=== PATIENT | male | born 1945 | race Caucasian/White ===

== ENCOUNTER 2019-12-28 18:59 | Inpatient (IN) | payer OTHER, MEDICARE ==
[~2019-12-28] VITALS: Ht 177.8 cm; Wt 59.1 kg
[2019-12-28 19:55] LABS: Hematocrit 47.6 % (37.0-53.0); Hemoglobin 16.1 g/dL (13.5-17.5); Mean Corpuscular HGB 33.2 pg (26.0-34.0); Mean Corpuscular HGB Conc 33.8 g/dL (31.5-36.5); Mean Corpuscular Volume 98 fL (80-100); Mean Platelet Volume 10.2 fL (9.1-12.4); Platelet Count 671 K/mm3 (150-400); RDW Coefficient Variation 13.7 % (11.7-14.2); RDW Standard Deviation 50.1 fL (35.1-46.3); Red Blood Cell Count 4.85 M/mm3 (4.30-5.90); White Blood Cell Count 22.61 K/mm3 (4.00-11.30)
[2019-12-28 20:10] LABS: International Normalized Ratio 1.07; Prothrombin Time Results 11.4 Sec (9.7-11.5)
[2019-12-28 20:11] LABS: Alanine Aminotransfer (ALT/SGP 28 U/L (12-78); Albumin, Blood 2.7 g/dL (3.4-5.0); Albumin/Globulin Ratio 0.5 (0.8-1.8); Alk Phos 109 U/L (50-136); Anion Gap 7 mmol/L (6-16); Aspartate Aminotrans (AST/SGOT 28 U/L (12-37); Bilirubin, Total 0.6 mg/dL (0.1-1.0); Blood Urea Nitrogen 15 mg/dL (8-24); Bun/Creatinine Ratio 19.7 (12.0-20.0); CO2, Blood 27 mmol/L (21-32); Calcium, Blood 9.6 mg/dL (8.5-10.1); Chloride, Blood 108 mmol/L (98-108); Creatinine, Blood 0.76 mg/dL (0.60-1.20); Globulin, Blood 5.2 g/dL (2.2-4.0); Glomerular Filtration Rate >60 (60-); Glucose, Blood 158 mg/dL (70-99); Potassium, Blood 3.8 mmol/L (3.5-5.5); Sodium, Blood 142 mmol/L (136-145); Total Protein, Blood 7.9 g/dL (6.4-8.2)
[2019-12-28 20:16] LABS: BAND PERCENT MAN 1 % (0-8); BASOPHILS PERCENT MAN 0 % (0-2); EOSINOPHILS PERCENT MAN 0 % (0-6); LYMPHOCYTES % ATYPICAL MANUAL 1 % (0-0); LYMPHOCYTES ABSOLUTE MAN 1.35 K/mm3 (0.84-5.20); LYMPHOCYTES PERCENT MAN 5 % (21-46); MONOCYTES ABSOLUTE MAN 0.67 K/mm3 (0.16-1.47); MONOCYTES PERCENT MAN 3 % (4-13); NEUTROPHILS ABSOLUTE MAN 20.57 K/mm3 (1.96-9.15); SEG NEUTROPHILS PERCENT MAN 90 % (41-73); TOTAL CELLS COUNTED 100
[2019-12-29 06:19] LABS: Hematocrit 46.9 % (37.0-53.0); Hemoglobin 15.8 g/dL (13.5-17.5); Mean Corpuscular HGB 33.5 pg (26.0-34.0); Mean Corpuscular HGB Conc 33.7 g/dL (31.5-36.5); Mean Corpuscular Volume 99 fL (80-100); Mean Platelet Volume 10.4 fL (9.1-12.4); Platelet Count 624 K/mm3 (150-400); RDW Coefficient Variation 13.7 % (11.7-14.2); RDW Standard Deviation 50.4 fL (35.1-46.3); Red Blood Cell Count 4.72 M/mm3 (4.30-5.90); White Blood Cell Count 22.25 K/mm3 (4.00-11.30)
[2019-12-29 15:18] LABS: Source, Urine Clean Catch
[2019-12-29 15:34] LABS: Blood, Urine 3+ (Neg); Glucose Qualitative, Urine Neg (Neg); Ketones, Urine 1+ (Neg); Leukocyte Esterase, Urine 1+ (Neg); Nitrite, Urine Neg (Neg); Protein, Urine 2+ (Neg); Specific Gravity, Urine 1.015 (1.003-1.022); Urobilinogen, Urine 4+ (Normal)
[2019-12-29 16:00] LABS: Bilirubin, Urine 1+ (Neg)
[2019-12-29 16:01] LABS: Appearance, Urine Clear (Clear); Color, Urine Yellow (P-Yellow)
[2019-12-29 16:02] LABS: Bacteria Few /hpf; Mucus Light (0-Heavy); Squamous Epithelial Cells Not Seen /hpf (Few); White Blood Cells, Urine 0-2 /hpf (0-5)
--- NOTE | 2019-12-29 17:53 | NUR ---
ADMIT NOTE RECEIVED TELEPHONE REPORT FROM MARCELA HERRERA IN ED. PT TO ROOM VIA GURNEY AT 1447; PT TRANSFERED TO BE SBA. PT AND SON ORIENTED TO ROOM AND CALL LIGHT; EDUCATED ON FALL RISK AND CALLING BEFORE GETTING UP. PT A&Ox3; CALM AND COOPERATIVE WITH CARE. PT DENIES PAIN, CHEST PAIN, NAUSEA, SOB, AND DIZZINESS. PT UNSTEADY GAIT; EDUCATED ON BED ALARM. COEUR D'ALENE. VSS. PT STATES HE DRINKS 4-8 OZ SCOTCH DAILY; LAST DRINK 12/27/19 EVENING. NO OTHER ACUTE CHANGES NOTED DURING SHIFT. WILL CONTINUE TO MONITOR UNTIL REPORT GIVEN TO ONCOMING RN.
[2019-12-30 04:01] LABS: BASOPHILS ABSOLUTE AUTO 0.09 K/mm3 (0.00-0.23); BASOPHILS PERCENT AUTO 0 % (0-2); EOSINOPHILS ABSOLUTE AUTO 0.08 K/mm3 (0.00-0.68); EOSINOPHILS PERCENT AUTO 0 % (0-6); Hematocrit 45.1 % (37.0-53.0); Hemoglobin 15.3 g/dL (13.5-17.5); IMMATURE GRAN ABSOLUTE AUTO 0.18 K/mm3 (0.00-0.10); IMMATURE GRAN PERCENT AUTO 1 % (0-1); LYMPHOCYTES ABSOLUTE AUTO 1.51 K/mm3 (0.84-5.20); LYMPHOCYTES PERCENT AUTO 7 % (21-46); MONOCYTES ABSOLUTE AUTO 1.69 K/mm3 (0.16-1.47); MONOCYTES PERCENT AUTO 8 % (4-13); Mean Corpuscular HGB 33.2 pg (26.0-34.0); Mean Corpuscular HGB Conc 33.9 g/dL (31.5-36.5); Mean Corpuscular Volume 98 fL (80-100); Mean Platelet Volume 10.5 fL (9.1-12.4); NEUTROPHILS ABSOLUTE AUTO 18.54 K/mm3 (1.96-9.15); NEUTROPHILS PERCENT AUTO 84 % (41-73); Platelet Count 518 K/mm3 (150-400); RDW Coefficient Variation 13.6 % (11.7-14.2); RDW Standard Deviation 49.3 fL (35.1-46.3); Red Blood Cell Count 4.61 M/mm3 (4.30-5.90); White Blood Cell Count 22.09 K/mm3 (4.00-11.30)
--- NOTE | 2019-12-30 04:09 | NUR ---
SHIFT SUMMARY PT HAS BEEN ASLEEP MOST OF THE SHIFT WITH NO COMPLAINTS OF PAIN OR DISCOMFORT. PT HAS BEEN STABLE WITH VITALS OF BP 130-119 SYSTOLIC, HR 80'S, AND 02 SATS IN THE 90'S ON ROOM AIR. NO SYMPTOMS OF WITHDRAW, PT DENIED ANY HEADACHE, TREMORS, OR HALLUCINATIONS. NO CIWA'S WERE SCORED PT WAS ASLEEP AND ASYMPTOMATIC. PT WAS UNHAPPY BUT COOPERATIVE WITH CARE. PT HAS BEEN NPO SINCE MIDNIGHT AND IS ASLEEP. WILL CONTINUE TO MONITOR UNTIL SHIFT CHANGE.
[2019-12-30 04:15] LABS: Anion Gap 6 mmol/L (6-16); Blood Urea Nitrogen 11 mg/dL (8-24); Bun/Creatinine Ratio 17.1 (12.0-20.0); CO2, Blood 25 mmol/L (21-32); Calcium, Blood 8.5 mg/dL (8.5-10.1); Chloride, Blood 105 mmol/L (98-108); Creatinine, Blood 0.65 mg/dL (0.60-1.20); Glomerular Filtration Rate >60 (60-); Glucose, Blood 195 mg/dL (70-99); Potassium, Blood 3.4 mmol/L (3.5-5.5); Sodium, Blood 136 mmol/L (136-145)
--- NOTE | 2019-12-30 10:38 | NUR ---
12/30/19 Danya Catherine MAC CASE WITH DR. HOLLEY IN ENDO 2. SEE ANETHESIA RECORD FOR CARE
--- NOTE | 2019-12-30 18:53 | NUR ---
TRANSFER TO ROOM 330 PT A&Ox4; CALM AND COOPERATIVE WITH CARE. PT RESTING IN BED; APPEARS TO BE SLEEPING DURING SHIFT. UP WITH SBA IN ROOM. PT DENIES PAIN, CHEST PAIN, SOB, NAUSEA AND DIZZINESS T/O SHIFT. WENT TO PROCEDUER THIS AM; PLANS TO GO FOR COLONOSCOPY TOMORROW; NPO AFTER LUNCH TOMORROW PER ORDERS. VSS. NO OTHER ACUTE CHANGES NOTED. REPORT GIVEN TO MARCELA BOOGIE ASSUMING CARE OF PT; PT TRANSFERED TO ROOM 330 WHEELCHAIR AT 1700.
--- NOTE | 2019-12-30 19:37 | NUR ---
1700 ASSUMED CARE OF PT; TX FROM PCU 1 TO RM 330. RECEIVED REPORT FROM KAREEM MEDRANO. PT ADMITTED FOR GIB, SENT FROM [facility]. PT HAD UPPER ENDO TODAY AND FLEX FINDING SIGMOID POLYP. PT TO HAVE FULL SCOPE TOMORROW TO LOOK FOR MORE POLYPS, PER KAREEM MEDRANO. PT ON CL DIET AT THIS TIME, WITH NO REDS. PT TO BE NPO AFTER LUNCH TOMORROW. SR ON TELE, PER REPORT. PT HEAVY DRINKER, PER REPORT AND PT. MARCELO'S WNL'S AT THIS TIME. PT'S SON TO WITH PT, TO RETURN TOMORROW. PT'S SON REPORTED THAT PT HAD DROVE HIMSELF TO HOSPITAL, BUT SON DOES NOT WANT PT TO DRIVE HIMSELF HOME. SON TO BE NOTIFIED PRIOR TO PT D/C. SON'S NUMBER ON BOARD. PT RESTING QUIETLY AT THIS TIME. 1P SBA TO BTHRM. BSC TO BE OBTAINED WHEN STARTING GOLYTELY. REPORT GIVEN TO ONCOMING RN. CALL LT IN REACH.
--- NOTE | 2019-12-30 20:11 | NUR ---
PHYSICIAN COMMUNICATION CONTACTED SAT INSTRUCTOR PHYSICIAN, DR CAMERON, TO NOTIFY HIM THAT THE PATIENT HAD A TEMPERATURE OF 100.5 BUT DID NOT HAVE AN ORDER FOR TYLENOL. DR CAMERON ORDERED 650 MG OF TYLENOL PO EVERY 6 HOURS NEEDED.
--- NOTE | 2019-12-31 07:31 | NUR ---
SHIFT SUMMARY PATIENT ALERT AND ORIENTED. HAS BEEN DRINKING GOLYTELY OVERNIGHT, STOOLS ARE NOW LIQUID AND CLEARING IN COLOR. IV PATENT AND FLUSHED. BED IN LOWEST POSITION WITH WHEELS LOCKED AND ALARM ON. CALL LIGHT WITHIN REACH. REPORT GIVEN TO ONCOMING MARCELA.
--- NOTE | 2019-12-31 07:35 | NUR ---
SHIFT SUMMARY PATIENT'S MENTATION HAS BEEN SLOWLY CLEARNING OVERNIGHT, HE REMAINS WEAK AND UNSTEADY ON HIS FEET. PATIENT'S AROUND 1999 AND HE HAS BEEN WITHDRAWN AND QUIET SINCE. HE HAS BEEN REPORTING PAIN IN HIS RIGHT LOWER RIB AREA THAT INCREASED OVERNIGHT. THE PAIN IS EXACERBATED WHEN THE PATIENT MOVES, COUGHS, AND TAKES A DEEP BREATH. PATIENT MEDICATED PER EMAR FOR PAIN. IV PATENT AND FLUSHED. BED IN LOWEST POSITION WITH WHEELS LOCKED AND ALARM ON. CALL LIGHT WITHIN REACH. REPORT GIVEN TO ONCOMING RN.
--- NOTE | 2019-12-31 15:08 | NUR ---
PT TRANSFERED TO [facility] FROM FLOOR VIA GURNY. History, Chart, Medications and Allergies reviewed before start of procedure. Lungs clear T/O to Auscultation. Patient confirms NPO status and agrees with scheduled surgery. Pre-Op teaching done. Pt verbalizes understanding.
--- NOTE | 2019-12-31 15:20 | NUR ---
12/31/19 1520 VANGIE TUTTLE History, Chart, Medications and Allergies reviewed before start of procedure. 3-LEAD EKG REVIEWED WITH PHYSICIAN PRIOR TO START OF PROCEDURE. O2 VIA N/C INTACT THROUGHOUT SEDATION/PROCEDURE. MONITOR INTACT WITH CONTINUOUS PULSE OXIMETRY AND INTERMITTENT BP. MAC WITH DR. GAMEZ.
--- NOTE | 2019-12-31 16:18 | NUR ---
@ ONSET OF SHIFT NOC RN REPORT PT NEARLY FINISHED w GOLYTELY, STOOLS ARE NEARLY CLEAR YELLOW. MID MORNING PT FINISH GOLYTELY. STOOL IS CLOUDY YELLOW w SM AMT SEDIMENT, APPEARS READY FOR COLONOSCOPY TODAY. HIGH SPEED PRINTER OPERATOR NOTIFIED, STATE PT WILL HAVE PROCEDURE APPROX 1530. PT NOTIFIED. HE IS A/O X4, PLEASANT AFFECT, STATE NO DISCOMFORT OTHER THAN BOWEL PREP. DR WILSON IN TO SEE HIM, STATE POSSIBLE D/C AFTER PROCEDURE DEPENDING ON RESULTS, STATE PT WILL NEED TRANSPORTATION HOME, WILL CALL HIS SON NUNO. PT OUT TO OR APPROX 1515.
--- NOTE | 2019-12-31 18:28 | NUR ---
Per admit trigger, I met with Kvng Ballgary to offer education about ACP. He told me, "my sons know wheat I want" and he did not see a need "for paperwork." He was pleasantly dismissive. I will remain available.
--- NOTE | 2020-01-01 05:57 | NUR ---
01/01/20 0550 UP TO BR FOR VOIDING AND VERY SMALL BROWN BM WITH SCANT BLOOD. DENIES ANY S/S OR DISCOMFORT. VITALS STABLE. UNEVENTFUL NIGHT.
[2020-01-01 06:07] LABS: Prealbumin, Blood 3.3 mg/dL (20.0-40.0)
[2020-01-01 10:29] LABS: Hematocrit 45.4 % (37.0-53.0); Hemoglobin 15.5 g/dL (13.5-17.5); Mean Corpuscular HGB 33.3 pg (26.0-34.0); Mean Corpuscular HGB Conc 34.1 g/dL (31.5-36.5); Mean Corpuscular Volume 98 fL (80-100); Mean Platelet Volume 10.9 fL (9.1-12.4); Platelet Count 380 K/mm3 (150-400); RDW Coefficient Variation 13.6 % (11.7-14.2); RDW Standard Deviation 48.7 fL (35.1-46.3); Red Blood Cell Count 4.65 M/mm3 (4.30-5.90); White Blood Cell Count 20.01 K/mm3 (4.00-11.30)
[2020-01-01 10:45] LABS: Anion Gap 8 mmol/L (6-16); Blood Urea Nitrogen 15 mg/dL (8-24); Bun/Creatinine Ratio 20.4 (12.0-20.0); CO2, Blood 24 mmol/L (21-32); Chloride, Blood 107 mmol/L (98-108); Creatinine, Blood 0.73 mg/dL (0.60-1.20); Glomerular Filtration Rate >60 (60-); Glucose, Blood 163 mg/dL (70-99); Potassium, Blood 3.7 mmol/L (3.5-5.5); Sodium, Blood 139 mmol/L (136-145)
--- NOTE | 2020-01-01 13:31 | NUR ---
Pt. is in bed resting he reportsoing fine today encouraged pt. and offered prayers formthe pt.
--- NOTE | 2020-01-01 17:05 | NUR ---
SUMMARY PT IS A/O X4, GENERALLY PLEASANT AFFECT, SOMEWHAT WITHDRAWN, HE CHOOSES TO STAY IN BED T/O DAY, DECLINES OOB TO CHAIR. HE PREFERS TO USE BSC HOWEVER HAVE BEEN ENCOURAGING AMBULATION TO BR. HE IS WEAK, THIN HOWEVER GAIT FAIRLY STEADY, SBA TO BR. SURG CONSULT THIS AFTERNOON w DR RENTERIA. DR RENTERIA ORDER REGULAR DIET, ENCOURAGE HIM TO EAT, SUPPORT STAFF NOTIFIED. PT STATE DR RENTERIA WANTS HIM TO GAIN WEIGHT BEFORE SHE WILL DO SURGERY, POSSIBLY 3-4 WKS. PT SON IN TO VISIT, PROVIDED UPDATE. VSS.
--- NOTE | 2020-01-01 23:35 | NUR ---
UNABSORBED PILL PT HAD LOOSE BOWEL MOVEMENT AND IN THE CONTENTS WAS A WHOLE ROUND PILL WITH THE LETTERS "PCL" POSSIBLY ONE OF THE TWO POTASSIUM CHLORIDE TABS HE IS RECIEVIING IN THE AM. TM.
--- NOTE | 2020-01-02 04:00 | NUR ---
CLINICAL APPLICATION CONSULTANT SUMMARY PT HAD AN UNEVENTFUL NIGHT HE SLEPT FOR MOST OF THE SHIFT. PT REMAINED TACHYCARDIC THIS SHIFT BUT DENIED ANY C/P OR PRESSURE. PT HAD A LOOSE BOWEL MOVEMENT AND PASSED AN ENTIRE PILL WHICH APPEARED TO BE A POTASSIUM CHLORIDE TAB. PT DENIED ANY STOMACH PAIN OR NAUSEA. WCTM.
[2020-01-02] MEDS ORDERED: FLUC200 PO (11:00)
[2020-01-02] MEDS ORDERED: [UNRECOGNIZED DRUG - OTHER] (11:04)
[2020-01-02] MEDS ORDERED: TAMS.4ER PO (11:04)
--- NOTE | 2020-01-02 12:29 | NUR ---
Pt. is 9n bed resting and is doing much better offered prayers.
--- NOTE | 2020-01-02 16:16 | NUR ---
DISCHARGED TO HOME WITH SONS. SCRIPTS TO [facility]. PT PLAN TO TRAVEL TO [place] WITH SONS.
== END 2020-01-02 15:15 | disposition home health service (06) | DRG 377 ==
LOC: ER 18:59 → ERHOLD 19:00 → MEDS 12-29 14:19 → PCU 12-29 14:19 → ERHOLD 12-29 14:19 → PCU 12-29 14:48 → MEDS 12-30 17:09
PROVIDERS: Emergency Medicine; Hospitalist; Student in an Organized Health Care Education/Training Program; Surgery; ADMIT Internal Medicine
PROC: 0DB28ZX Excision of Middle Esophagus, Via Natural or Artificial Opening Endoscopic, Diagnostic (ICD-10-PCS; 2019-12-30)
PROC: 0DBN8ZZ Excision of Sigmoid Colon, Via Natural or Artificial Opening Endoscopic (ICD-10-PCS; 2019-12-30)
PROC: 0DB98ZX Excision of Duodenum, Via Natural or Artificial Opening Endoscopic, Diagnostic (ICD-10-PCS; principal; 2019-12-30 11:45)
PROC: 0DB18ZX Excision of Upper Esophagus, Via Natural or Artificial Opening Endoscopic, Diagnostic (ICD-10-PCS; 2019-12-30 11:45)
PROC: 0DBN8ZX Excision of Sigmoid Colon, Via Natural or Artificial Opening Endoscopic, Diagnostic (ICD-10-PCS; 2019-12-31)
PROC: 0DBL8ZX Excision of Transverse Colon, Via Natural or Artificial Opening Endoscopic, Diagnostic (ICD-10-PCS; 2019-12-31)
DX: K29.81 Duodenitis with bleeding (principal); K85.90 Acute pancreatitis without necrosis or infection, unspecified; Z68.1 Body mass index [BMI] 19.9 or less, adult; R65.10 Systemic inflammatory response syndrome (SIRS) of non-infectious origin without acute organ dysfunction; K86.2 Cyst of pancreas; I82.890 Acute embolism and thrombosis of other specified veins; F10.239 Alcohol dependence with withdrawal, unspecified; B37.81 Candidal esophagitis; Z20.828 Contact with and (suspected) exposure to other viral communicable diseases; I86.4 Gastric varices; F17.210 Nicotine dependence, cigarettes, uncomplicated; D47.3 Essential (hemorrhagic) thrombocythemia; J44.9 Chronic obstructive pulmonary disease, unspecified; K63.5 Polyp of colon; K63.89 Other specified diseases of intestine; K57.31 Diverticulosis of large intestine without perforation or abscess with bleeding
CPT/HCPCS: 36415; 71250; 74177; 76770; 80048; 80053; 81001; 82378; 83690; 84134; 85025; 85027; 85610; 85730; 86850; 86900; 86901; 87086; 88305; 88312; 93005; 93010; 96374; 96375; 99285-25; A9270; A9270-GY; C9113; J2704; J3411; J3475; J7042; J7120; Q9967; U0004